=== PATIENT | female | born 1975 | race Caucasian/White ===

== ENCOUNTER 2019-06-30 22:02 | Observation (INO) | payer SELFPAY ==
[~2019-06-30] VITALS: Ht 158 cm; Wt 77.4 kg
[2019-06-30] MEDS ORDERED: CELE50CA PO (22:14)
[2019-06-30] MEDS ORDERED: MRTZ30T1 PO (22:14)
[2019-06-30] MEDS ORDERED: TRZ50T PO (22:14)
[2019-06-30] MEDS ORDERED: PRAZ1CAP2 PO (22:15)
[2019-06-30] MEDS ORDERED: FLUT9.9S NS (22:15)
[2019-06-30] MEDS ORDERED: DULO30CA3 PO (22:15)
[2019-06-30 22:23] LABS: BILIRUBIN,URINE NEGATIVE (NEGATIVE); CLARITY,URINE CLEAR; COLOR,URINE YELLOW; GLUCOSE, URINE (UA) NEGATIVE (NEGATIVE); KETONES,URINE NEGATIVE (NEGATIVE); LEUKOCYTE ESTERASE ,URINE NEGATIVE (NEGATIVE); NITRITE,URINE NEGATIVE (NEGATIVE); PH,URINE 5.5 (5-9); PROTEIN,URINE NEGATIVE (NEGATIVE)
[2019-06-30] MEDS ORDERED: traZODone 100 MG (DESYREL) TAB PO ONE (22:30)
--- NOTE | 2019-06-30 22:36 | ED Neurological Problem ---
General Chief Complaint: Neurological Problems Stated Complaint: SYNCOPE Nursing Triage Note: SEIZURE Nursing Sepsis Screen: No Definite Risk Source: patient, EMS Exam Limitations: no limitations History of Present Illness Date Seen by Provider: Jun 30, 2019 Time Seen by Provider: 22:04 Initial Comments This 44-year-old woman presents to the emergency room via EMS from the [facility] where she experienced seizure-like activity. Patient reports not feeling well today. She was feeling shaky and lightheaded. This evening she was eating some cake to try to help with these symptoms when she became very lightheaded. Witnesses state her eyes rolled up and she lost consciousness. She was lowered to the floor and then proceeded to have 3 minutes of seizure- like behavior. She has never had anything like this occur in the past. 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 She should therefore not be withdrawing from illicit substances. She has been suffering from insomnia. She recently was started on Remeron to help with insomnia symptoms. 2 days ago she discontinued trazodone 300 mg at bedtime. She did not taper this discontinuation. She reported nausea and Zofran 4 mg was administered by EMS. Patient reports having mild cough in recent days. EMS rep orts there was no trauma that she was lowered to the floor. EMS reported hypotension with a blood pressure of 88/58. IV fluids were initiated in route. Fingerstick blood sugar by EMS was 112. EMS reports she seemed postictal initially with mentation clearing in route. Patient reports she was able to walk on scene but felt dizzy doing so. Tonya with [facility] is her behavioral health provider. Her primary care provider is Sophie Faulkner at [facility]. Allergies and Home Medications Allergies Coded Allergies: Penicillins (Verified Allergy, Unknown, 06/30/19) divalproex sodium (Verified Allergy, Unknown, 06/30/19) Home Medications Fluticasone Propionate 9.9 Ml [place].susp, 1 SPRAY NS DAILY, (Reported) 1 SPRAY EACH NARE DAILY Patient Home Medication List Home Medication List Reviewed: Yes Review of Systems Review of Systems Constitutional: no symptoms reported Eyes: No Symptoms Reported Ears, Nose, Mouth, Throat: no symptoms reported Cardiovascular: see HPI Gastrointestinal: see HPI Genitourinary: no symptoms reported : No Musculoskeletal: no symptoms reported Skin: no symptoms reported Psychiatric/Neurological: See HPI Endocrine: No Symptoms Reported Hematologic/Lymphatic: No Symptoms Reported Past Azqlgjc-Hstzoq-Rqsgwv Hx Past Med/Social Hx: Reviewed and Corrections made Patient Social History Alcohol Use: Denies Use Recreational Drug Use: Yes (prior methamphetamine abuse) Smoking Status: Current Everyday Smoker Type Used: Cigarettes 2nd Hand Smoke Exposure: Yes Recent Foreign Travel: No Contact w/Someone Who Travel: No Recent Infectious Disease Expo: No Recent Hopitalizations: No Physical Abuse: No Sexual Abuse: No Mistreated: No Fear: No Immunizations Up To Date Tetanus Booster (TDap): Unknown Seasonal Allergies Seasonal Allergies: Yes Past Medical History Surgeries: Yes Abdominal, Appendectomy, Gallbladder, Hysterectomy Respiratory: No Cardiac: No Neurological: No : No CATEGORY DIRECTOR History: Hysterectomy Genitourinary: No Gastrointestinal: No Musculoskeletal: Yes Arthritis Endocrine: No HEENT: No Cancer: No Psychosocial: Yes Sleep Difficulties, Anxiety, PTSD, Depression Integumentary: No Blood Disorders: No Adverse Reaction/Blood Tranf: No Physical Exam Vital Signs Vital Signs - First Documented 06/30/19 22:02 Temp 36.8 Pulse 81 Resp 18 B/P (MAP) 102/67 (79) Pulse Ox 95 O2 Delivery Room Air Capillary Refill : Less Than 3 Seconds Height, Weight, BMI Height: '" Weight: lbs. oz. 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, no motor/sensory deficits, alert, normal mood/affect, oriented x 3 Crainal Nerves: normal hearing, normal speech, PERRL Motor/Sensory: no motor deficit, no sensory deficit Skin: normal color, warm/dry Progress/Results/Core Measures Results/Orders Lab Results Laboratory Tests Test 06/30/19 22:07 06/30/19 22:18 Range/Units White Blood Count 10.2 4.3-11.0 10^3/uL Red Blood Count 4.25 L 4.35-5.85 10^6/uL Hemoglobin 13.2 11.5-16.0 G/DL Hematocrit 39 35-52 % Mean Corpuscular Volume 91 80-99 FL Mean Corpuscular Hemoglobin 31 25-34 PG Mean Corpuscular Hemoglobin Concent 34 32-36 G/DL Red Cell Distribution Width 12.4 10.0-14.5 % Platelet Count 257 130-400 10^3/uL Mean Platelet Volume 9.6 7.4-10.4 FL Neutrophils (%) (Auto) 50 42-75 % Lymphocytes (%) (Auto) 41 12-44 % Monocytes (%) (Auto) 7 0-12 % Eosinophils (%) (Auto) 2 0-10 % Basophils (%) (Auto) 0 0-10 % Neutrophils # (Auto) 5.1 1.8-7.8 X 10^3 Lymphocytes # (Auto) 4.2 H 1.0-4.0 X 10^3 Monocytes # (Auto) 0.7 0.0-1.0 X 10^3 Eosinophils # (Auto) 0.3 0.0-0.3 10^3/uL Basophils # (Auto) 0.0 0.0-0.1 10^3/uL Sodium Level 139 135-145 MMOL/L Potassium Level 3.0 L 3.6-5.0 MMOL/L Chloride Level 106 98-107 MMOL/L Carbon Dioxide Level 18 L 21-32 MMOL/L Anion Gap 15 H 5-14 MMOL/L Blood Urea Nitrogen 15 7-18 MG/DL Creatinine 1.05 0.60-1.30 MG/DL Estimat Glomerular Filtration Rate 57 BUN/Creatinine Ratio 14 Glucose Level 199 H 70-105 MG/DL Calcium Level 8.8 8.5-10.1 MG/DL Corrected Calcium 8.8 8.5-10.1 MG/DL Magnesium Level 1.7 1.6-2.4 MG/DL Total Bilirubin 0.2 0.1-1.0 MG/DL Aspartate Amino Transf (AST/SGOT) 18 5-34 U/L Alanine Aminotransferase (ALT/SGPT) 24 0-55 U/L Alkaline Phosphatase 73 40-136 U/L Total Protein 6.8 6.4-8.2 GM/DL Albumin 4.0 3.2-4.5 GM/DL Serum Alcohol < 10 <10 MG/DL Urine Color YELLOW Urine Clarity CLEAR Urine pH 5.5 5-9 Urine Specific [place] 1.015 L 1.016-1.022 Urine Protein NEGATIVE NEGATIVE Urine Glucose (UA) NEGATIVE NEGATIVE Urine Ketones NEGATIVE NEGATIVE Urine Nitrite NEGATIVE NEGATIVE Urine Bilirubin NEGATIVE NEGATIVE Urine Urobilinogen 0.2 < = 1.0 MG/DL Urine Leukocyte Esterase NEGATIVE NEGATIVE Urine RBC (Auto) NEGATIVE NEGATIVE Urine RBC NONE /HPF Urine WBC NONE /HPF Urine Crystals PRESENT H /LPF Urine Amorphous Sediment FEW ALBERTO URATES H /LPF Urine Bacteria TRACE /HPF Urine Casts NONE /LPF Urine Mucus NEGATIVE /LPF Urine Culture Indicated NO Urine Opiates Screen NEGATIVE NEGATIVE Urine Oxycodone Screen NEGATIVE NEGATIVE Urine Methadone Screen NEGATIVE NEGATIVE Urine Propoxyphene Screen NEGATIVE NEGATIVE Urine Barbiturates Screen NEGATIVE NEGATIVE Ur Tricyclic Antidepressants Screen NEGATIVE NEGATIVE Urine Phencyclidine Screen NEGATIVE NEGATIVE Urine Amphetamines Screen NEGATIVE NEGATIVE Urine Methamphetamines Screen NEGATIVE NEGATIVE Urine Benzodiazepines Screen NEGATIVE NEGATIVE Urine Cocaine Screen NEGATIVE NEGATIVE Urine Cannabinoids Screen NEGATIVE NEGATIVE My Orders Orders - SHEKHAR US MD Alcohol (06/30/19 22:11) Cbc With Automated Diff (06/30/19 22:11) Comprehensive Metabolic Panel (06/30/19 22:11) Drug Screen Stat (Urine) (06/30/19 22:11) Magnesium (06/30/19 22:11) Ua Culture If Indicated (06/30/19 22:11) Ed Iv/Invasive Line Start (06/30/19 22:11) Ekg Tracing (06/30/19 22:11) Monitor-Rhythm Ecg Trace Only (06/30/19 22:11) Chest 1 View, Ap/Pa Only (06/30/19 22:11) Ct Head Wo (06/30/19 22:11) Trazodone Tablet (Desyrel Tablet) (06/30/19 22:30) Potassium Cl 10meq/50ml Ivpb (Kcl 10 Meq (07/01/19 00:00) Ns Iv 1000 Ml (Sodium Chloride 0.9%) (06/30/19 23:47) Medications Given in ED Current Medications Medications Dose Ordered Sig/Lazaro Route Start Time Stop Time Status Last Admin Dose Admin Potassium Chloride 50 ml @ 50 mls/hr ONCE ONCE IV 07/01/19 00:00 07/01/19 00:59 DC 06/30/19 23:56 50 MLS/HR Trazodone HCl 200 mg ONCE ONCE PO 06/30/19 22:30 06/30/19 22:32 DC 06/30/19 22:37 200 MG Vital Signs/I&O 06/30/19 22:02 Temp 36.8 Pulse 81 Resp 18 B/P (MAP) 102/67 (79) Pulse Ox 95 O2 Delivery Room Air 07/01/19 00:00 Intake Total 100 ml Balance 100 ml Blood Pressure Mean: 79 Progress Progress Note #1: Time: 22:40 Progress Note Workup is in progress. Patient had abrupt cessation of trazodone which may have caused her symptoms and seizure-like activity. Trazodone 200 mg is being ordered now. IV fluids are infusing. Systolic blood pressure is still slightly low. Progress Note #2: Progress Note Patient was feeling improved after hydration and a dose of trazodone. She was found to be hypokalemic and potassium was also replaced. Case was discussed with Dr. Pastrana who agrees to admission. Initial ECG Impression Date: Jun 30, 2019 Initial ECG Impression Time: 22:06 Initial ECG Rate: 74 Initial ECG Rhythm: Normal Sinus Initial ECG Intervals: Normal Initial ECG Impression: Normal Comment Normal sinus rhythm with no ST elevation or depression. No abnormal intervals or axis deviation. Diagnostic Imaging Diagonstic Imaging: CT Plain Films/CT/US/NM/MRI: head Comments CT head viewed by me. Report reviewed. See report below: NAME: KRISTA GALLARDO [facility] REC#: [id number] PT STATUS: ADM Brian : 1975 PHYSICIAN: SHEKHAR SU MD ADMIT DATE: 07/01/19/ Draft Date of Exam:06/30/19 CT HEAD WO PROCEDURE: CT head without contrast. TECHNIQUE: Multiple contiguous axial images were obtained through the brain without the use of intravenous contrast. Auto Exposure Controls were utilized during the CT exam to meet ALARA standards for radiation dose reduction. INDICATION: Syncope CT HEAD: CT images of the head were obtained. FINDINGS: Ventricles and sulci are within normal limits for size. There is no intracranial hemorrhage identified. There is no abnormal mass effect or shift of midline structures. IMPRESSION: Unremarkable CT of the head. Dictated on workstation # [id number] Dict: 07/01/19 0553 Trans: 07/01/19 0556 CATALINA [id number] Interpreted by: JEM MORRISON MD Diagonstic Imaging: Xray Plain Films/CT/US/NM/MRI: chest Comments Chest x-ray viewed by me. Report not yet available. No acute abnormalities appreciated. Departure Communication (Admissions) Time/Spoke to Admitting Phy: 23:55 Dr. Pastrana Impression Primary Impression: Seizure-like activity Additional Impressions: Hypokalemia Medication withdrawal Qualified Codes: F19.939 - Other psychoactive substance use, unspecified with withdrawal, unspecified Disposition: ADMITTED INPATIENT Condition: Improved Admissions Decision to Admit Reason: Admit from ER (General) Decision to Admit/Date: Jun 30, 2019 Time/Decision to Admit Time: 23:45 Departure-Patient Inst. Referrals: NO,LOCAL PHYSICIAN (PCP) Primary Care Physician SHEKHAR US MD Jun 30, 2019 22:36
[2019-06-30 22:38] LABS: BACTERIA,URINE TRACE /HPF
[2019-06-30 22:39] LABS: AMORPHOUS SEDIMENT,UR FEW AMOR URATES /LPF
[2019-06-30 22:46] LABS: BASOPHILS % (AUTO) 0 % (0-10); EOSINOPHILS # (AUTO) 0.3 10^3/uL (0.0-0.3); EOSINOPHILS % (AUTO) 2 % (0-10); HEMATOCRIT 39 % (35-52); HEMOGLOBIN 13.2 G/DL (11.5-16.0); LYMPHOCYTES # (AUTO) 4.2 X 10^3 (1.0-4.0); LYMPHOCYTES % (AUTO) 41 % (12-44); MEAN CORPUSCULAR HEMOGLOBIN 31 PG (25-34); MEAN CORPUSCULAR HGB CONC 34 G/DL (32-36); MEAN CORPUSCULAR VOLUME 91 FL (80-99); MEAN PLATELET VOLUME 9.6 FL (7.4-10.4); MONOCYTES # (AUTO) 0.7 X 10^3 (0.0-1.0); MONOCYTES % (AUTO) 7 % (0-12); NEUTROPHILS # (AUTO) 5.1 X 10^3 (1.8-7.8); NEUTROPHILS % (AUTO) 50 % (42-75); PLATELET COUNT 257 10^3/uL (130-400); RED CELL DISTRIBUTION WIDTH 12.4 % (10.0-14.5); WHITE BLOOD COUNT 10.2 10^3/uL (4.3-11.0)
[2019-06-30 22:47] LABS: AMPHETAMINE SCREEN, URINE NEGATIVE (NEGATIVE); BARBITURATE SCREEN URINE NEGATIVE (NEGATIVE); BENZODIAZEPINES SCREEN URINE NEGATIVE (NEGATIVE); CANNABINOID SCREEN, URINE NEGATIVE (NEGATIVE); COCAINE SCREEN URINE NEGATIVE (NEGATIVE); METHADONE STAT NEGATIVE (NEGATIVE); METHAMPHETAMINE SCREEN URINE S NEGATIVE (NEGATIVE); OPIATE SCREEN URINE NEGATIVE (NEGATIVE); OXYCODONE STAT NEGATIVE (NEGATIVE); PROPOXYPHENE STAT NEGATIVE (NEGATIVE); TRICYCLIC ANTIDEPRESSANTS SCRE NEGATIVE (NEGATIVE)
[2019-06-30 22:59] LABS: ALANINE AMINOTRANSFERASE 24 U/L (0-55); ALKALINE PHOSPHATASE 73 U/L (40-136); BILIRUBIN,TOTAL 0.2 MG/DL (0.1-1.0); BUN/CREATININE RATIO 14; CALCIUM 8.8 MG/DL (8.5-10.1); CARBON DIOXIDE 18 MMOL/L (21-32); CHLORIDE 106 MMOL/L (98-107); CREATININE SERUM 1.05 MG/DL (0.60-1.30); GFR ESTIMATED 57; GLUCOSE 199 MG/DL (70-105); MAGNESIUM 1.7 MG/DL (1.6-2.4); SODIUM 139 MMOL/L (135-145); TOTAL PROTEIN 6.8 GM/DL (6.4-8.2)
[2019-06-30] MEDS ORDERED: NS IV 1000 ML 1,000 ML IV SCH (23:47)
[2019-07-01] VITALS (7 sets, daily range): BP systolic 98–116; BP diastolic 62–73
[2019-07-01] MEDS ORDERED: POTASSIUM CL 10MEQ/50ML IVPB 50 ML IV ONE
--- NOTE | 2019-07-01 01:10 | NUR ---
KRISTA GALLARDO admitted to room 427-1, with an admitting diagnosis of SEIZURE-LIKE SYMPTOMS, on 07/01/19 from ED via , accompanied by ED STAFF. KRISTA GALLARDO introduced to surroundings, call light, bed controls, phone, TV, temperature control, lights, meal times, smoking policy, visitor policy, side rail policy, bathrooms and showers. Patient Rights given to patient in the handbook. KRISTA GALLARDO verbalizes understanding that [facility] is not responsible for the loss or damage to any personal effects or valuables that are kept in the patients possession during their hospitalization. KRISTA GALLARDO verbalizes understanding of Interdisciplinary Patient Education. Patient and/or family were informed about the Rapid Response Team and its purpose.
[2019-07-01] MEDS ORDERED: NS W/KCL 40 MEQ/L 1,000 ML IV ONE (02:27)
[2019-07-01] MEDS ORDERED: ONDANSETRON 4 MG/2 ML (SDV) Z0FRAN IV PRN (03:15)
[2019-07-01] MEDS ORDERED: NS W/KCL 40 MEQ/L 1,000 ML IV SCH (03:15)
[2019-07-01] MEDS ORDERED: LORazepam INJ 2 MG/ML (ATIVAN) VIAL IV PRN (03:15)
[2019-07-01 04:43] LABS: BASOPHILS % (AUTO) 0 % (0-10); EOSINOPHILS # (AUTO) 0.3 10^3/uL (0.0-0.3); EOSINOPHILS % (AUTO) 3 % (0-10); HEMATOCRIT 37 % (35-52); HEMOGLOBIN 12.3 G/DL (11.5-16.0); LYMPHOCYTES # (AUTO) 3.4 X 10^3 (1.0-4.0); LYMPHOCYTES % (AUTO) 33 % (12-44); MEAN CORPUSCULAR HEMOGLOBIN 30 PG (25-34); MEAN CORPUSCULAR HGB CONC 33 G/DL (32-36); MEAN CORPUSCULAR VOLUME 92 FL (80-99); MEAN PLATELET VOLUME 9.5 FL (7.4-10.4); MONOCYTES # (AUTO) 0.8 X 10^3 (0.0-1.0); MONOCYTES % (AUTO) 7 % (0-12); NEUTROPHILS # (AUTO) 5.8 X 10^3 (1.8-7.8); NEUTROPHILS % (AUTO) 56 % (42-75); PLATELET COUNT 266 10^3/uL (130-400); RED CELL DISTRIBUTION WIDTH 12.4 % (10.0-14.5); WHITE BLOOD COUNT 10.3 10^3/uL (4.3-11.0)
[2019-07-01 05:13] LABS: BUN/CREATININE RATIO 14; CALCIUM 8.6 MG/DL (8.5-10.1); CARBON DIOXIDE 23 MMOL/L (21-32); CHLORIDE 113 MMOL/L (98-107); CREATININE SERUM 0.79 MG/DL (0.60-1.30); GFR ESTIMATED > 60; GLUCOSE 115 MG/DL (70-105); SODIUM 143 MMOL/L (135-145)
--- NOTE | 2019-07-01 05:57 | Diagnostic Imaging Report ---
PROCEDURE: CT head without contrast. TECHNIQUE: Multiple contiguous axial images were obtained through the brain without the use of intravenous contrast. Auto Exposure Controls were utilized during the CT exam to meet ALARA standards for radiation dose reduction. INDICATION: Syncope CT HEAD: CT images of the head were obtained. FINDINGS: Ventricles and sulci are within normal limits for size. There is no intracranial hemorrhage identified. There is no abnormal mass effect or shift of midline structures. IMPRESSION: Unremarkable CT of the head. Dictated by: Dictated on workstation # [id number]
--- NOTE | 2019-07-01 07:38 | Diagnostic Imaging Report ---
INDICATION: Syncope. Single PA view of the chest is obtained. COMPARISON: No previous study is available for comparison at this time. FINDINGS: Heart size and pulmonary vasculature are within normal limits, and the lungs are clear, bilaterally. IMPRESSION: Unremarkable chest. Dictated by: Dictated on workstation # [id number]
[2019-07-01] MEDS ORDERED: FLU QUADRIvalent (5+ YOA) 2019-2020 (AFLURIA) 0.5 ML IM ONE ×2 (07:45→12:58)
[2019-07-01] MEDS ORDERED: CATHETER FLUSH 10 ML SYR IV PRN (07:45)
[2019-07-01] MEDS ORDERED: PRAZ2CAP2 PO (09:00)
[2019-07-01] MEDS ORDERED: GABA-486 PO (09:00)
[2019-07-01] MEDS ORDERED: CETI10TA17 PO (09:00)
[2019-07-01] MEDS ORDERED: RT-ALBUINH IH (09:00)
[2019-07-01] MEDS ORDERED: CELE-63 PO (09:00)
[2019-07-01] MEDS ORDERED: BUSP15TA60 PO (09:00)
[2019-07-01] MEDS ORDERED: DULO60CA59 PO (09:00)
[2019-07-01] MEDS ORDERED: VITA1CAP PO (09:55)
[2019-07-01] MEDS ORDERED: MULT1TAB69 PO (09:55)
--- NOTE | 2019-07-01 10:23 | NUR ---
CALLED [facility] FOR A LIST OF RECENTLY FILLED MEDICATIONS. I WENT OVER THIS LIST WITH THE PATIENT AND SHE VERIFIED HOW SHE TAKES THEM. [facility] FILLED: 06-26-19 GABAPENTIN 100MG TID 06-26-19 PRAZOSIN 2MG 2 HS 06-26-19 DULOXETINE 60MG DAILY 06-26-19 TRAZODONE 150MG 2 HS (PATIENT STATES SHE DISCONTINUED AND STARTED REMERON) 06-26-19 BUSPAR 15MG BID X 3 DAYS THEN TID THEREAFTER (TAKES TID NOW) 06-16-19 FLONASE 1 SPRAY EACH NOSTRIL DAILY 06-16-19 CETIRIZINE 10MG DAILY 05-29-19 PROAIR INHALER 2 PUFFS Q6H PRN 05-22-19 CELEBREX 200MG 1-2 DAILY #60 (STATES SHE TAKES 1 CAPSULES AT HS) 05-18-19 CLONIDINE 0.1MG 1/2 TAB BID #30 (STATES SHE NO LONGER TAKES) [facility] DOES NOT HAVE REMERON ON FILE, PATIENT STATES SHE RECEIVED SAMPLES FROM [facility] BUT SHE DOES NOT KNOW THE STRENGTH. I CALLED AND LEFT A MESSAGE WITH [facility] AND WILL UPDATE THE MED REC WHEN I RECEIVE A CALL BACK. SHE TAKES A MTV DAILY AND B COMPLEX DAILY OTC. Addendum: 07/01/19 at 1216 by SOPHIA WADDELL [facility] AT [facility] CALLED BACK AND VERIFIED THEY GAVE HER REMERON 15MG TABLETS #10 - SHE WAS TO TAKE 1 AT HS THE FIRST NIGHT THEN INCREASE TO 2 TABS THEREAFTER. DISCHARGE ORDERS HAVE ALREADY BEEN PUT IN SO I DID NOT UPDATE MED REC AT THIS TIME.
[2019-07-01] MEDS ORDERED: TRAZ-190 PO (11:31)
--- NOTE | 2019-07-01 11:31 | Short Stay Summary-Hospitalist ---
History of Present Illness HPI/Chief Complaint CC: Seizure after abrupt discontinuation of Trazodone. HPI: This is a 44yoWF who has been on Trazodone for PTSD for the past 18 years, who abruptly stopped it and suffered what was somewhat described as a seizure. Pt assessed, Pt remained stable throughout the entire hospital course, and was deemed stable for discharge but has her own supply of Trazadone and I recommended starting a very low dose of 100 Mg at night. Source: patient Exam Limitations: no limitations Date Seen 07/01/19 Time Seen by a Provider: 10:30 Attending Physician Beverley Pastrana DO [facility] Referring Physician Date of Admission Jul 01, 2019 at 00:01 Home Medications & Allergies Home Medications Reviewed patient Home Medication Reconciliation performed by pharmacy medication reconciliations pressure testing technician and/or nursing. Patients Allergies have been reviewed. Allergies Allergies Coded Allergies Penicillins (Verified Allergy, Unknown, 06/30/19) divalproex sodium (Verified Allergy, Unknown, 06/30/19) Past Mtlokkz-Slybgs-Wmhctw Hx Past Med/Social Hx: Reviewed Nursing Past Med/Soc Hx, Reviewed and Corrections made Patient Social History Marrital Status: single Employed/Student: unemployed Alcohol Use: Denies Use Recreational Drug Use: Yes (prior methamphetamine abuse) Smoking Status: Current Everyday Smoker Type Used: Cigarettes 2nd Hand Smoke Exposure: Yes Recent Foreign Travel: No Contact w/other who traveled: No Recent Hopitalizations: No Recent Infectious Disease Expo: No Immunizations Up To Date Tetanus Booster (TDap): Unknown Seasonal Allergies Seasonal Allergies: Yes Past Medical History Surgeries: Abdominal, Appendectomy, Gallbladder, Hysterectomy : No Hysterectomy Musculoskeletal: Arthritis Psychosocial: Sleep Difficulties, Anxiety, PTSD, Depression History of Blood Disorders: No Adverse Reaction to Blood [place]: No Review of Systems Constitutional: see HPI Physical Exam Physical Exam Vital Signs Vital Signs - First Documented 06/30/19 22:02 Temp 36.8 Pulse 81 Resp 18 B/P (MAP) 102/67 (79) Pulse Ox 95 O2 Delivery Room Air Capillary Refill : Less Than 3 Seconds Height, Weight, BMI Height: '" Weight: lbs. oz. kg; 31.00 BMI Method: General Appearance: No Apparent Distress, WD/WN, Chronically ill Eyes: Bilateral Eye Normal Inspection, Bilateral Eye PERRL HEENT: PERRL/EOMI, Normal ENT Inspection, Pharynx Normal Neck: Full Range of Motion, Normal Inspection, Non Tender, Supple, Carotid Bruit Respiratory: Chest Non Tender, Lungs Clear, Normal Breath Sounds, No Accessory Muscle Use, No Respiratory Distress Cardiovascular: Regular Rate, Rhythm, No Edema, No Gallop, No JVD, No Murmur, Normal Peripheral Pulses Gastrointestinal: Normal Bowel Sounds, No Organomegaly, No Pulsatile Mass, Non Tender, Soft Back: Normal Inspection, No CVA Tenderness, No Vertebral Tenderness Extremity: Normal Capillary Refill, Normal Inspection, Normal Range of Motion, Non Tender, No Calf Tenderness, No Pedal Edema Neurologic/Psychiatric: Alert, Oriented x3, No Motor/Sensory Deficits, Normal Mood/Affect Skin: Normal Color, Warm/Dry Lymphatic: No Adenopathy Results Results/Procedures Labs Laboratory Tests 06/30/19 22:07 07/01/19 04:15 Patient resulted labs reviewed. Short Stay Diagnosis Discharge Diagnosis-Short Stay Admission Diagnosis Seizure-like activity from abrupt withdrawal from Trazodone Final Discharge Diagnosis Seizure-like activity from abrupt withdrawal from Trazodone Conclusion Plan DC home Resume med at lower dose Diagnosis/Problems Diagnosis/Problems (1) Seizure-like activity Status: Acute (2) Medication withdrawal Status: Acute Qualifiers: Qualified Codes: F19.939 - Other psychoactive substance use, unspecified w ith withdrawal, unspecified Clinical Quality Measures DVT/VTE Risk/Contraindication: Risk Factor Score Per Nursin RFS Level Per Nursing on Admit: 2=Moderate BEVERLEY PASTRANA DO Jul 01, 2019 11:31
== END 2019-07-01 13:15 | disposition home or self-care (01) ==
LOC: EDUNIT# 22:02 → ER 22:04 → 4TH 07-01 00:01
PROVIDERS: ADMIT Internal Medicine; ATTEND Internal Medicine
DX: F19.939 Other psychoactive substance use, unspecified with withdrawal, unspecified (principal); F17.210 Nicotine dependence, cigarettes, uncomplicated; G47.9 Sleep disorder, unspecified; E87.6 Hypokalemia; F32.9 Major depressive disorder, single episode, unspecified; F41.9 Anxiety disorder, unspecified; F43.10 Post-traumatic stress disorder, unspecified; Z88.0 Allergy status to penicillin; Z90.89 Acquired absence of other organs; Z90.710 Acquired absence of both cervix and uterus; Z88.8 Allergy status to other drugs, medicaments and biological substances; Z79.899 Other long term (current) drug therapy
CPT/HCPCS: 36415; 70450; 71045; 80048; 80053; 80306; 80320; 81000; 83735; 85025; 93005; 93041; 96360; G0378